=== PATIENT | male | born 1975 | race Caucasian/White ===

== ENCOUNTER 2025-03-05 13:24 | Outpatient (REF) | payer MEDICARE, MEDICAID, SELFPAY ==
--- OUTSIDE RECORDS SUMMARY | 2025-03-05 14:20 | XMS_ITS | Encounter Summary ---
Author Organization [employer] Address [address] [place] [address] Care Team Providers Care Supervising Chef Name Role Phone Cora Mayes MD Primary Care Provider Encounter Details Date Type Department Care Team ([facility] st Contact Info) Description 01/26/2024 Orders Only [facility] [address] [place], [place] [phone] Cora Mayes MD [address] [place], [place] [phone] Anxiety (Primary Dx); Bipolar affective disorder, remission status unspecified (CMS/[facility]) Social History Tobacco Use Types Packs/Day Years Used Date Smoking Tobacco: Every Day Cigarettes Smokeless Tobacco: Never Depression Answer Date Recorded Patient Health Questionnaire-9 Score 9 08/16/2022 Housing Stability Answer Date Recorded What is your housing situation today? I have [place] call 05/09/[address] you li ve. Do you have problems with any of the following? None of the above 05/09/2023 Food Insecurity Answer Date Recorded Within the past 12 months, y ou worried that your food would run out before you got money to buy more: Never True 05/09/2023 Within the past 12 months,th e food you bought just didn't last and you didn't have enough money to get more: Never True Transportation Answer Date Recorded In the past 12 months, has l ack of transportation kept you from medical appts, meetings, work or from getting things needed for daily living? No 05/09/2023 Utilities Answer Date Recorded In the past 12 months, has t he electric, gas, oil or water company threatened to shut off services in your home? No 05/09/2023 Depression Answer Date Recorded Patient Health Questionnaire-2 Score 4 08/16/2022 Sex and Gender Information Value Date Recorded Sex Assigned at Male 05/16/2022 10:27 AM EDT Legal Sex Male 10:27 AM EDT Gender Identity Male 05/16/2022 10:27 AM EDT Sexual Orientation Straight 05/16/2022 10 :27 AM EDT documented as of this encounter Plan of Treatment Upcoming Encounters Date Type Department Care Team (Late st Contact Info) Description 03/10/2025 2:45 PM EDT Office Visit [facility] [address] [place] [address] Cora Mayes MD [address] [place] [address] documented as of this encounter Visit Diagnoses Diagnosis Anxiety- Primary Anxiety state, unspecified Bipolar affective disorder, remission status unspecified ([facility]) documented in this encounter Additional Health Concerns Assessment Noted Time PHQ-9 Depression Total Score: 9 08/16/19 23 3:33 PM EST documented as of this encounter Care Teams Supervising Chef Relationship Specialty Start Date End Date Cora Mayes MD [address] [place] [address] PCP - General Internal Medicine 03/14/19 documented as of this encounter
--- OUTSIDE RECORDS SUMMARY | 2025-03-05 14:20 | XMS_ITS | Clinical Summary ---
Author Organization [facility] Address [address] [place] [address] Care Team Providers Care Seasoning Sprayer Name Role Phone Gavino Barboza Primary Care Provider [phone] Source Comments PLEASE NOTE, if this patient is a minor, it may be UNLAWFUL to discuss sensitive information that is contained in these records (such as FAMILY PLANNING, MENTAL HEALTH or SUBSTANCE ABUSE) with the minor patient's parent or other person without the patient's specific authorization.[facility] Allergies No known active allergies Medications ALLERGY RELIEF, FEXOFENADINE, 180 mg tablet TAKE 1 TABLET BY MOUTH EVERY DAY FOR ITCHING OR ALLERGY SYMPTOMS 2 Active lisinopriL 20 mg tablet Take 1 Tablet by mouth once daily 2 Active clobetasoL (TEMOVATE) 0.05 % ointmentIndicati ons:Eczema, unspecified type Apply topically 2 (two) times daily 15 g 2 2 Active predniSONE (DELTASONE) 10 mg tablet packIndications: Eczema, unspecified type Prednisone dose pack 21 Tablet 2 Active atorvastatin (LIPITOR) 20 mg tablet TAKE 1 TABLET BY MOUTH DAILY 90 Tablet 2 2 Active lisinopriL-hydro chlorothiazide 20-12.5 mg per tablet TAKE 1 TABLET BY MOUTH EVERY DAY 90 Tablet 2 2 Active Active Problems Problem Noted Date Diagnosed Date Abscess of upper limb 06/30/2022 Cigarette smoker 06/30/2022 Ritalin use disorder, mild ([facility]) 10/02 ADHD 08/27/2018 Tobacco dependence 08/27/2018 HTN (hypertension) 08/12/2016 Hyperlipidemia 09/06/2013 Microscopic hematuria 09/06/2013 Vitamin D deficiency 09/06/2013 Anxiety 08/09/2012 Bipolar disorder ([facility]) 01/30/2006 Overview (06/30/2022): followed by [facility]; last crisis 10/20 Immunizations Immunization Administration Dates Next Due Flu, Cell Culture based, Pre servative Free, 6m+, Flucelvax 05/12/2021 Flu, Multi Dose 0.5 ML 04/24/2018,04/27/2016 Flu, Preservative Free 06/30/2022,03/19/2020, INFLUENZA, SEASONAL, INJECTABLE 04/30/20 18,04/07/2017,04/10/2014,2011,04/08/2011,05/02/2010 INFLUENZA, SEASONAL, INJECTA BLE, PRESERVATIVE FREE 04/17/2015 TDAP 09/24/2021, 8,01/26/2015,2007 Social History Tobacco Use Types Packs/Day Years Used Date Smoking Tobacco: Every Day Smokeless Tobacco: Never Tobacco Cessation:Ready to Q uit: No Alcohol Use Standard Drinks/Week Comments Yes 0 (1 standard drink = 0.6 oz pur e alcohol) occassionally Social Connections Answer Date Recorded Connectedness 0 06/30/2022 Financial Resource Strain Answer Date R ecorded Financial Resource Strain 0 2021 Stress Answer Date Recorded Stress 0 06/30/2022 Physical Activity Answer Date Recorded Physical Activity 0 06/30/2022 Food Insecurity Answer Date Recorded Food 0 06/30/2022 Transportation Needs Answer Date Record ed Transportation 0 06/30/2022 Housing Stability Answer Date Recorded Housing 0 06/30/2022 Safety and Environment Answer Date Martinez rded Safety 0 06/30/2022 Utilities Answer Date Recorded Utilities 0 06/30/2022 Employment Answer Date Recorded Employment 0 06/30/2022 Sex and Gender Information Value Date Recorded Sex Assigned at Male 06/30/2022 11:16 AM PST Legal Sex Male 9:00 AM PDT Gender Identity Male 06/30/2022 11:16 AM PST Sexual Orientation Straight 08/30/2017 12 :43 PM PST Last Filed Vital Signs Vital Sign Reading Time Taken Comments Blood Pressure 126/84 08/30/2017 3:04 PM EST Pulse 72 08/30/2017 3:04 PM EST Temperature 36.9 C (98.5 F) 08/30/2017 3:04 PM EST Respiratory Rate 18 08/30/2017 3:04 PM EST Oxygen Saturation - - Inhaled Oxygen Concentration - - Weight 92.5 kg (204 lb) 08/30/2017 3:04 PM EST Height 165 cm (5' 4.96 ) 06/30/2022 2:15 PM EST Body Mass Index 33.99 08/30/2017 3:04 PM EST Plan of Treatment Health Maintenance Due Date Last Done Comments Anxiety Screening 1975 Medicare Annual Wellness Visit 1993 Imm-Hepatitis B (1 of 3 - 19 + 3-dose series) 1994 Imm-Pneumococcal (1 of 2 - PCV) 1994 CT Colonography 2020 Colonoscopy 2020 Colorectal Cancer Screening 2020 FIT/gFOBT 2020 Fecal DNA 2020 Flexible Sigmoidoscopy 2020 Lipid Screening 06/30/2023 06/30/2022, 09/01/2017 Tobacco Cessation Counseling (#1) 06/30/2023 022 Tobacco Screening 06/30/2023 06/30/2022 [id number] () 03/17/2024 021 Alcohol and Drug Screen 07/17/2024 06/30/2022, 08/30 Depression Annual Screen 07/17/2024 06/30/2022 Imm-Influenza (#1) 2025 06/30/2022, 1 , 03/19/2020, Additional history exists Diabetes Screening 06/30/2025 06/30/2022, 1 08/31/2021, 09/01/2017 Imm-DTaP/Tdap/Td (5 - Td or Tdap) 09/25/2031 09/24/2021, 08/30/2017, 01/26/2015, Additional history exists HIV Screening Completed 09/01/2017 Hepatitis C Screening Completed 09/01/2017 Goals Goal Patient Goal Type Associated Problems Recent Progress Patient-Stated? Author Blood Pressure < 130/80 Blood Pressure HTN (hypertension) 126/84( 018 3:04 PM EST) No Funmilayo Kauffman, Iza Procedures Procedure Name Priority Date/Time Associated Diagnosis Comments HGBA1C W/MPG Routine 06/30/2022 2:44 PM EST Hyperglycemia LIPID PANEL Routine 06/30/2022 2:44 PM EST Hyperglycemia Abnormal finding of blood chemistry, unspecified ANTIBODY HIV-1&HIV-2 SINGLE RESULT Routine 09/01/2017 11:30 AM EST Routine adult health maintenance HEPATITIS A,B,C PANEL Routine 09/01/2017 11:30 AM EST Routine adult health maintenance from Last 3 Months or Most Recently Relevant to Health Maintenance Results * HGBA1C W/MPG (06/30/2022 2:44 PM EST) HEMOGLOBIN A1C 5.0 <5.7 % of total Hgb PPI Comment: For the purpose of screening for the presence of diabetes: <5.7% Consistent with the absence of diabetes 5.7-6.4% Consistent with increased risk for diabetes (prediabetes) > or =6.5% Consistent with diabetes This assay result is consistent with a decreased risk of diabetes. Currently, no consensus exists regarding use of hemoglobin A1c for diagnosis of diabetes in children. According to [place] Diabetes Association (ADA) guidelines, hemoglobin A1c <7.0% represents optimal control in non- diabetic patients. Different metrics may apply to specific patient populations. Standards of Medical Care in Diabetes(ADA). MEAN PLASMA GLUCOSE 101 mg/dL (calc) PPI Blood Blood / Unknown 06/30/2022 2 :44 PM EST 06/30/2022 2:44 PM EST [facility] - BLOOD DRAW Final Result [employer] [address] [address], [employer] [facility] [address] [address] * (ABNORMAL) LIPID PANEL (06/30/2022 2:44 PM EST) CHOLESTEROL, TOTAL 194 <200 mg/dL [facility] [facility] HDL CHOLESTEROL 37(L) > OR = 40 mg/dL [facility] TRIGLYCERIDES 242(H) <150 mg/dL [facility] Comment: If a non-fasting specimen was collected, consider repeat triglyceride testing on a fasting specimen if clinically indicated. Shaniqua et al. J. of Clin. Lipidol. 2015;9:129-169. LDL-CHOLESTEROL 120(H) 99 mg/dL (calc) [facility] Comment: Reference range: <100 Desirable range <100 mg/dL for primary prevention; <70 mg/dL for patients with CHD or diabetic patients with > or = 2 CHD risk factors. LDL-C is now calculated using the Christina calculation, which is a validated novel method providing better accuracy than the Friedewald equation in the estimation of LDL-C. Cruz HERNDON et al. BETO. 2013;310(19): 9631-0062 (http://education.[employer]/faq/VFD909) CHOL/HDLC RATIO 5.2(H) <5.0 (calc) [facility] NON-HDL CHOLESTEROL 157(H) <130 mg/dL (calc) [employer] [facility] Comment: For patients with diabetes plus 1 major ASCVD risk factor, treating to a non-HDL-C goal of <100 mg/dL (LDL-C of <70 mg/dL) is considered a therapeutic option. Blood Blood / Unknown 06/30/2022 2 :44 PM EST 06/30/2022 2:44 PM EST us [facility] - BLOOD DRAW Final Result [employer] [facility] [address] [address], [employer] [facility] [address] [address] * HEPATITIS A,B,C PANEL (09/01/2017 11:30 AM EST) HEPATITIS B SURFACE ANTIBODY NEGATIVE NEGATIVE [facility] HEPATITIS B SURFACE ANTIGEN NEGATIVE NEGATIVE [facility] Comment: Over the counter supplements containing high doses of biotin may interfere with this assay. If interference is suspected, patients shoud be retested after refraining from biotin supplements for 72 hours. HEPATITIS C VIRUS DIAGNOSTIC NEGATIVE NEGATIVE [facility] HEPATITIS B CORE ANTIBODY NEGATIVE NEGATIVE [facility] HEPATITIS A ANTIBODY TOTAL NEGATIVE NEGATIVE [facility] Comment: Over the counter supplements containing high doses of biotin may interfere with this assay. If interference is suspected, patients shoud be retested after refraining from biotin supplements for 72 hours. Blood specimen (specimen) Blood / Unknown 09/01/2017 11:30 AM EST 09/01/2017 8:03 PM EST [facility] - 09/01/2017 9:08 PM EST [facility] [employer] [address] [place] [address] PT ID [id number] ORD# [id number] [facility] - BLOOD DRAW Edited Result - Final [address] [address], * HIV-1 & HIV-2 ANTIBODIES (09/01/2017 11:30 AM EST) [facility] HIV 1 AND 2 ANTIBODY SCREEN NEGATIVE NEGATIVE [facility] Comment: This assay is a 4th generation assay allowing for earlier detection of HIV infection by detecting the presence of the HIV-1 p24 antigen as well as the traditional antibodies to HIV type 1 (including group O) and type 2. Use of a 4th generation assay is the current CDC recommendation for HIV screening. Blood specimen (specimen) Blood / Unknown 09/01/2017 11:30 AM EST 09/01/2017 8:03 PM EST Narrative [facility] - 09/01/2017 9:37 PM EST [facility] [employer] [address] [place] [address] PT ID [id number] ORD# [id number] us [facility] - BLOOD DRAW Edited Result - Final [facility] [address] [place] [address], from Last 3 Months or Most Recently Relevant to Health Maintenance Insurance [place] MEDICAID [employer] MEDICARE COMPLETE CHO Care Teams Seasoning Sprayer Relationship Specialty Start Date End Date Gavino Barboza PA [address] [place] [address] PCP - General FAMILY MEDICINEAUTUMN 02/25/25
[2025-03-05 14:42] LABS: MANUAL DIFF FLAG NO
[2025-03-05 14:47] LABS: Hematocrit 49.3 % (42.0-52.0); Hemoglobin 17.6 g/dl (14.0-18.0); Imm Gran Abs Auto 0.03 X10*3/uL (0.00-0.03); Imm Gran Pct Auto 0.3 % (0.0-0.4); Lymphocytes Absolute Auto 1.8 X10*3/uL (1.2-4.9); Mean Corpuscular HGB Conc 35.7 g/dl (31.0-36.0); Mean Corpuscular Hemoglobin 31.0 pg (27.0-33.0); Mean Corpuscular Volume 86.8 fL (80.0-98.0); NRBC Abs Auto 0.000 X10*3/uL (0.0-0.012); NRBC Pct Auto 0.0 /100WBC (0.0-0.2); Platelet Count 224 X10*3/uL (160-400); Red Blood Count 5.68 X10*6/uL (4.60-5.80); White Blood Count 9.6 X10*3/uL (4.8-10.8)
[2025-03-05 15:17] LABS: Alanine Aminotransferase 40 U/L (0-40); Albumin Level 4.9 g/dL (3.5-5.0); Alkaline Phosphatase 141 U/L (39-117); Anion Gap 13 (12-20); Aspartate Amino Transferase 29 U/L (5-37); Blood Urea Nitrogen 13 mg/dL (9-16); Calcium 9.4 mg/dL (8.4-10.2); Carbon Dioxide 28 mmol/L (22-29); Chloride 105 mmol/L (96-108); Cholesterol 160 mg/dL (<200); Estimated Glomerular Filt Rate > 60; HDL Cholesterol 33 mg/dL (>40); Potassium 3.5 mmol/L (3.3-5.1); Sodium 142 mmol/L (135-145); Total Protein 7.8 g/dL (6.5-8.0); Triglycerides 197 mg/dL (<150)
[2025-03-06 08:39] LABS: HIV Num 1 0.05 S/CO (0.00-0.99); ~HepC Num1 0.11 S/CO (0.00-0.79); ~Hepatitis C Antibody Nonreactive (Nonreactive)
== END 2025-03-05 13:25 | disposition home or self-care (01) ==
LOC: HO.CHCLDS 13:24
PROVIDERS: Visit Provider Internal Medicine
DX: E78.49 Other hyperlipidemia (principal); I10 Essential (primary) hypertension; F41.9 Anxiety disorder, unspecified; R74.8 Abnormal levels of other serum enzymes; Z13.6 Encounter for screening for cardiovascular disorders
CPT/HCPCS: 36415; 80053; 80061; 84443; 85025; 86803; 87389